=== PATIENT | male | born 1955 | race Two or more races ===

== ENCOUNTER 2018-11-24 18:29 | Emergency (ER) | payer OTHER ==
[~2018-11-24] VITALS: Ht 182.9 cm; Wt 72.6 kg
[2018-11-24 18:36] VITALS: BP 169/78
[2018-11-24] MEDS ORDERED: KETOROLAC TROMETHAMINE INJ 60 MG/2 ML VIAL IM ONE ×2 (18:52→19:00)
[2018-11-24] MEDS ORDERED: HYDROCODONE/APAP 5/325MG 1 EACH TABLET ONE (18:52)
[2018-11-24] MEDS ORDERED: CYCLOBENZAPRINE 10 MG TABLET ONE (18:52)
[2018-11-24] MEDS ORDERED: CYCLOBENZAPRINE 10 MG TABLET PO ONE (19:00)
[2018-11-24] MEDS ORDERED: HYDROCODONE/APAP 5/325MG 1 EACH TABLET PO ONE (19:00)
--- NOTE | 2018-11-24 19:16 | NUR ---
PT'S IS PICKING PT UP AND TAKING HIM HOME. PT AMBULATED OUT TO THE LOBBY WITH A STEADY GAIT. VSS
== END 2018-11-24 19:17 | disposition home or self-care (01) ==
LOC: ER 18:32
DX: M54.5 Low back pain (principal); E78.5 Hyperlipidemia, unspecified; E11.9 Type 2 diabetes mellitus without complications
CPT/HCPCS: J1885